=== PATIENT | female | born 1965 | race American Indian/Alaskan Native ===

== ENCOUNTER 2017-03-20 10:35 | Outpatient (CLI) | payer BC ==
--- NOTE | 2017-03-21 12:04 | Mammography Report ---
BILATERAL MAMMOGRAM with CAD: HISTORY:Baseline screening with CAD. FINDINGS: The breasts are almost entirely fat (<25% glandular). No mass, distortion, suspicious calcification, or skin change is seen. IMPRESSION: Negative mammogram. There is no mammographic evidence of malignancy. RECOMMENDATION: Follow-up per ACS guidelines. BI-RADS CATEGORY: 1 = Negative ACR BI-RADS MAMMOGRAPHIC CODES: 0 = Needs additional imaging evaluation; 1 = Negative; 2 = Benign; 3 = Probably benign; 4 = Suspicious; 5 = Malignant; 6 = Known biopsy-proven malignancy COMMENT: 1. Dense breast tissue, i.e., adenosis, fibrocystic changes, etc., may obscure an underlying neoplasm. 2. Approximately 10% of cancers are not detected with mammography. 3. A negative mammography report should not delay biopsy if a clinically suspicious mass is present. COMMENT: Patient follow-up letters are generated in [employer].
== END 2017-03-20 10:36 | disposition home or self-care (01) ==
LOC: MAMMO 10:35
PROVIDERS: ATTEND Obstetrics & Gynecology
DX: Z12.31 Encounter for screening mammogram for malignant neoplasm of breast (principal)
CPT/HCPCS: 77067; G0202

== ENCOUNTER 2022-02-10 17:22 | Emergency (ER) | payer BC, OTHER ==
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
[2022-02-10] MEDS ORDERED: ACETAMINOPHEN 500 MG TAB PO ONE (21:28)
[2022-02-10] MEDS ORDERED: KETOROLAC 30 MG/1 ML INJ IM ONE (21:28)
[2022-02-10 21:56] VITALS: BP 162/83
== END 2022-02-10 22:11 | disposition home or self-care (01) ==
LOC: ED 17:22
DX: M79.10 Myalgia, unspecified site (principal); I10 Essential (primary) hypertension; E11.9 Type 2 diabetes mellitus without complications; V89.2XXA Person injured in unspecified motor-vehicle accident, traffic, initial encounter; Y93.89 Activity, other specified; Y92.89 Other specified places as the place of occurrence of the external cause; Y99.8 Other external cause status
CPT/HCPCS: 96372; 99282; J1885